=== PATIENT | female | born 1975 | race Caucasian/White ===

== ENCOUNTER 2016-05-13 08:03 | Emergency (ER) | payer OTHER ==
--- NOTE | ~2016-05-13 | CR63 ---
[facility] A Service of [facility] & [facility] RADIOLOGY TEXT RESULTS PATIENT: SOULEYMANE ALAS LOCATION: [facility] : 75 UNIT #: [id number] AGE: [address]: Silvia Christie SEX: F ORDER DR: [id number] [facility] [address] [place], [place] [address] [id number] E MR#: [id number] Acc #: [id number] NAME: SOULEYMANE ALAS. : 1975 SEX: F STUDY DATE/TIME: 05/13/2016 9:06 UNIT: [facility] ROOM: STUDY DESCRIPTION: CR Chest 2 View Attending Physician: Silvia Christie Pa-C Ordering Physician: Silvia Christie Pa-C Primary Care Physician: [facility] MEDICAL IMAGING REPORT This report is preliminary unless electronic signature is present EXAM Chest, 2 views, 05/13/2016. INDICATION 40-year-old female with a cough, headache, congestion. Left-sided chest pain for 3 days. History of asthma and hypertension. TECHNIQUE 2 views of the chest compared with 04/09/2016. FINDINGS Cardiac silhouette unremarkable. Vascularity is normal. Lungs are clear. Calcified granulomas are present. No pneumothorax. IMPRESSION Negative chest. No change. Dictated by... Nathaniel Griggs M.D. THIS IS AN ELECTRONICALLY VERIFIED REPORT Nathaniel Griggs M.D. at 05/13/2016 4:38 PM YUKI/jimenez TD: 05/13/2016 12:37 JOB #: [id number] MEDICAL IMAGING REPORT COPY
[~2016-05-13 08:03] MED LIST: ACETAMINOPHEN PO; ALBUTEROL17 GM INH; AMITRYPTYLINE PO; CELEBREX PO; CIPRO PO; IBUPROFEN PO; IBUPROFEN800 MG PO; LEVAQUIN PO; LORTAB 5/500 TA1 TA1 PO; LORTAB 7.5-5001 TAB PO; MEDROL PO; MOTRIN600 MG PO; NAPROXEN PO; NO MEDICATIONS; ORUDIS75 M1 PO; PERCOCET 5-3251 TAB PO; PHENERGAN25 MG PO; ROBITUSSIN ALL118 ML PO; ULTRAM PO; VICODIN 5/1 TAB 5/50 PO; VICODIN 5/500 T1 TAB PO; VOLTAREN50 MG PO; WALGREENS PHARMACY; ZANAFLEX PO; ZITHROMAX PO
[2016-05-13 09:01] LABS: INFLUENZA A NEG (NEG); INFLUENZA B NEG (NEG)
== END 2016-05-13 10:53 | disposition home or self-care (01) ==
LOC: CED 08:03
PROVIDERS: Physician Assistant Medical
DX: J06.9 Acute upper respiratory infection, unspecified (principal); J20.9 Acute bronchitis, unspecified; I10 Essential (primary) hypertension; F17.210 Nicotine dependence, cigarettes, uncomplicated; Z98.51 Tubal ligation status
CPT/HCPCS: 71020; 87804; 94640; 99283

== ENCOUNTER 2016-06-20 11:48 | Emergency (ER) | payer OTHER ==
--- NOTE | ~2016-06-20 | US98 ---
[facility] A Service of [facility] / [facility] RADIOLOGY TEXT RESULTS PATIENT: SOULEYMANE ALAS LOCATION: [facility] : 75 UNIT #: [id number] AGE: [address]: Anum Bowen MD SEX: F ORDER DR: [id number] [facility] [address] [place], [place] [address] [id number] E MR#: [id number] Acc #: [id number] NAME: SOULEYMANE ALAS : 1975 SEX: F STUDY DATE/TIME: 06/20/2016 13:03 UNIT: [facility] ROOM: STUDY DESCRIPTION: US Pelvic Non-OB Complete Attending Physician: Anum Bowen M.D. Ordering Physician: Anum Bowen M.D. MEDICAL IMAGING REPORT This report is preliminary unless electronic signature is present EXAM Transabdominal and transvaginal pelvic ultrasound 06/20/2016 HISTORY Right lower quadrant abdominal pain since the age of 13, increasing today. Stabbing pain. Nausea. COMPARISON No prior pelvic ultrasound of this institution for comparison. Correlation is made to CT abdomen and pelvis 05/28/2009. TECHNIQUE Transabdominal imaging was performed for generalized evaluation of the pelvic structures while transvaginal imaging was performed for more detailed evaluation of the adnexal regions. FINDINGS The uterus measures 9.4 x 4.5 x 5.5 cm. The endometrial bilayer thickness is within normal limits, 9 mm. No focal endometrial or myometrial abnormality is identified. Small cervical nabothian cysts are noted. The right ovary measures 1.5 x 1.3 x 1.2 cm without cystic or solid abnormality and demonstrates normal color and spectral Doppler flow. Left ovary measures 2.4 x 1.4 x 1.8 cm and contains a mildly complex cyst with low-level internal echoes measuring 1.1 x 0.8 x 1 cm. Color flow was documented to each ovary. No pelvic free fluid is identified. IMPRESSION 1. 1.1 cm mildly complex left ovarian lesion, thought to represent a [facility] A Service of [facility] / [facility] RADIOLOGY TEXT RESULTS PATIENT: SOULEYMANE ALAS [id number] 75 UNIT #: [id number] AGE: [address]: Anum Bowen MD SEX: F ORDER DR: mildly complex cyst. Consider ultrasound followup in 6 weeks at a different phase of the patient's menstrual cycle to ensure improvement or resolution. 2. The right ovary appears unremarkable. 3. Normal flow was documented to each ovary. 4. Normal appearance of the uterus and endometrium. Dictated by... Staci Zambrano M.D. THIS IS AN ELECTRONICALLY VERIFIED REPORT Staci Zambrano M.D. at 06/23/2016 8:37 AM ARMANDO/daija TD: 06/20/2016 17:22 JOB #: [id number] MEDICAL IMAGING REPORT Page 1 of 1 COPY
[2016-06-20 12:33] LABS: BASOPHIL# 0.1 X10e3 (0-0.3); BASOPHIL% 0.7 % (0-2.5); EOSINOPHIL# 0.1 X10e3 (0-0.7); EOSINOPHIL% 0.5 % (0.0-7.0); HEMATOCRIT 39.2 % (35.0-45.0); HEMOGLOBIN 12.9 gm/dL (12.0-16.0); LYMPHOCYTE# 1.8 X10e3 (1.0-3.5); LYMPHOCYTE% 18.3 % (17.0-45.0); MEAN CELL VOLUME 103.8 FL (83-96); MEAN CORPUSCULAR HEMOGLOBIN 34.2 PG (28-34); MEAN PLATELET VOLUME 9.3 FL (6.5-11.5); MONOCYTE# 0.5 X10e3 (0-1.0); MONOCYTE% 5.4 % (3.0-12.0); NEUTROPHIL# 7.3 X10e3 (1.5-7.1); NEUTROPHIL% 75.1 % (40-75); PLATELET COUNT 259 X10e3 (140-420); RED BLOOD COUNT 3.78 X10e (3.90-5.30); RED CELL DISTRIBUTION WIDTH 14.6 % (11.0-15.5); WHITE BLOOD COUNT 9.8 X10e3 (4.0-10.5)
[2016-06-20 12:47] LABS: DIFF IND NO
[2016-06-20 13:03] LABS: ALBUMIN SERUM 4.6 g/dL (3.5-5.0); ALKALINE PHOSPHATASE 51 U/L (32-92); ALT (SGPT) 65 U/L (10-40); AST (SGOT) 82 U/L (10-42); BILIRUBIN,TOTAL 0.4 mg/dL (0.2-2.0); BLOOD UREA NITROGEN 10 mg/dL (9-23); CALCIUM SERUM 9.2 mg/dL (8.4-10.2); CARBON DIOXIDE 20 mmol/L (22-31); CHLORIDE 102 mmol/L (100-111); CREATININE SERUM 0.4 mg/dL (0.6-1.4); GLOM FILT RATE Estimated 130.3 mL/min (>60); GLUCOSE FASTING 71 mg/dL (70-110); POTASSIUM 3.3 mmol/L (3.5-5.1); PROTEIN TOTAL SERUM 7.1 g/dL (6.0-8.3); SODIUM 139 mmol/L (135-145)
[2016-06-20 13:06] LABS: BILIRUBIN, DIRECT <0.1 mg/dL (0.0-0.2); BILIRUBIN,INDIRECT 0.3 mg/dL (0.0-0.9)
[2016-06-20 13:27] LABS: URINE SOURCE CLEAN CATCH
[2016-06-20 14:02] LABS: URINE APPEARANCE CLEAR; URINE BILIRUBIN NEG (NEG); URINE BLOOD NEG (NEG); URINE COLOR YELLOW; URINE GLUCOSE NEG (NEG); URINE KETONE TRACE (NEG); URINE LEUKOCYTE ESTERASE NEG (NEG); URINE NITRATE NEG (NEG); URINE PROTEIN NEG (NEG); URINE SPECIFIC GRAVITY 1.009 (1.003-1.035); URINE UROBILINOGEN 0.2 MG/DL (NEG)
[2016-06-20 14:19] LABS: CULTURE INDICATED? NO
== END 2016-06-20 15:34 | disposition home or self-care (01) ==
LOC: CED 11:48
PROVIDERS: Emergency Medicine
DX: R10.31 Right lower quadrant pain (principal); I10 Essential (primary) hypertension; F17.210 Nicotine dependence, cigarettes, uncomplicated; Z98.51 Tubal ligation status
CPT/HCPCS: 36415; 76856; 80048; 80076; 81003; 84703; 85025; 96361; 96374; 96375; 96376; 99284; J1170; J2405

== ENCOUNTER 2016-08-12 15:38 | Emergency (ER) | payer OTHER ==
--- NOTE | ~2016-08-12 | CR93 ---
[facility] A Service of [facility] RADIOLOGY TEXT RESULTS PATIENT: SOULEYMANE ALAS LOCATION: [facility] : 75 UNIT #: [id number] AGE: [address]: Elliott Walker MD SEX: F ORDER DR: [id number] [facility] [address] [place], [place] [address] [id number] E MR#: [id number] Acc #: [id number] NAME: SOULEYMANE ALAS. : 1975 SEX: F STUDY DATE/TIME: 08/12/2016 17:57 UNIT: [facility] ROOM: STUDY DESCRIPTION: CR Elbow Min 3 Views Lt Attending Physician: Elliott Walker M.D. Ordering Physician: Elliott Walker M.D. Primary Care Physician: [facility] MEDICAL IMAGING REPORT This report is preliminary unless electronic signature is present EXAM Left elbow, 3 views. COMPARISON None. INDICATION 40-year-old female with left elbow pain after crawling on her elbows in a crawl space yesterday. FINDINGS There is no elbow effusion. Bones are anatomically aligned. There is a tiny chronic ossicle versus small osteophyte noted at the coronoid process of the ulna. Bones are anatomically aligned. No evidence of acute fracture. There is an exostosis of the anteromedial distal aspect of the humeral shaft. IMPRESSION 1. No evidence acute fracture or dislocation of the elbow. Tiny chronic appearing bone fragment near the coronoid process of the ulna only seen on a single view, possibly representing very small osteophyte or chronic ossicle. 2. Exostosis of the distal humeral shaft, most likely representing a benign osteochondroma. If the patient has ongoing chronic pain in this location. MRI with IV contrast can be performed as an outpatient for further characterization. Dictated by... Tre Garcia M.D. [facility] A Service of [facility] RADIOLOGY TEXT RESULTS PATIENT: SOULEYMANE ALAS LOCATION: [facility] : 75 UNIT #: [id number] AGE: [address]: Elliott Walker MD SEX: F ORDER DR: THIS IS AN ELECTRONICALLY VERIFIED REPORT Tre Garcia M.D. at 08/18/2016 7:29 AM IVETT/edis TD: 08/12/2016 23:41 JOB #: [id number] MEDICAL IMAGING REPORT Page 1 of 1 COPY
--- NOTE | ~2016-08-12 | EKG ---
PATIENT: SOULEYMANE ALAS UNIT #: [id number] Ventricular Rate: 79 BPM Atrial Rate: 79 BPM P-R Interval: 168 ms QRS Duration: 96 ms Q-T Interval: 378 ms QTC Calculation(Bezet): 433 ms P [place]: 40 degrees Calculated R [place]: 47 degrees Calculated T [place]: 41 degrees Diagnosis Line: Normal sinus rhythm Diagnosis Line: Normal ECG Diagnosis Line: No previous ECGs available Diagnosis Line: Confirmed by DARRIN OKEEFE MD ([id number]) on Diagnosis Line: 08/12/2016 10:22:20 PM INTERPRETING MD: RENE
--- NOTE | ~2016-08-12 | CR72 ---
[facility] A Service of [facility] & [facility] RADIOLOGY TEXT RESULTS PATIENT: SOULEYMANE ALAS LOCATION: [facility] : 75 UNIT #: [id number] AGE: [address]: Elliott Walker MD SEX: F ORDER DR: [id number] [facility] [address] [place], [place] [address] [id number] E MR#: [id number] Acc #: [id number] NAME: SOULEYMANE ALAS. : 1975 SEX: F STUDY DATE/TIME: 08/12/2016 17:55 UNIT: [facility] ROOM: STUDY DESCRIPTION: CR Chest Single View Portable Attending Physician: Elliott Walker M.D. Ordering Physician: Elliott Walker M.D. MEDICAL IMAGING REPORT This report is preliminary unless electronic signature is present EXAM AP view of the chest COMPARISON May 13, 2016 and March 28, 2016 and December 27, 2015. HISTORY 40-year-old female with left-sided chest pain since yesterday. History of asthma. FINDINGS Cardiomediastinal silhouette is within normal limits. There is no evidence of pneumothorax or pleural effusion. No evidence of acute airspace disease. Re-demonstration of posterolateral right fifth rib fracture which is chronic in nature. IMPRESSION No acute radiographic abnormality of the chest. Dictated by... Tre Garcia M.D. THIS IS AN ELECTRONICALLY VERIFIED REPORT Tre Garcia M.D. at 08/18/2016 7:27 AM BLM/pcl TD: 08/12/2016 23:24 JOB #: [id number] MEDICAL IMAGING REPORT Page 1 of 1 COPY
[2016-08-12 17:10] LABS: BASOPHIL% 0.8 % (0-2.5); EOSINOPHIL# 0.1 X10e3 (0-0.7); EOSINOPHIL% 1.9 % (0.0-7.0); HEMATOCRIT 37.4 % (35.0-45.0); HEMOGLOBIN 12.5 gm/dL (12.0-16.0); LYMPHOCYTE# 1.8 X10e3 (1.0-3.5); LYMPHOCYTE% 33.6 % (17.0-45.0); MEAN CELL VOLUME 104.1 FL (83-96); MEAN CORPUSCULAR HEMOGLOBIN 34.8 PG (28-34); MEAN CORPUSCULAR HGB CONC 33.4 g/dL (30-36); MEAN PLATELET VOLUME 8.5 FL (6.5-11.5); MONOCYTE# 0.4 X10e3 (0-1.0); MONOCYTE% 8.6 % (3.0-12.0); NEUTROPHIL# 2.9 X10e3 (1.5-7.1); NEUTROPHIL% 55.1 % (40-75); PLATELET COUNT 236 X10e3 (140-420); RED BLOOD COUNT 3.59 X10e (3.90-5.30); RED CELL DISTRIBUTION WIDTH 13.2 % (11.0-15.5); WHITE BLOOD COUNT 5.2 X10e3 (4.0-10.5)
[2016-08-12 17:14] LABS: DIFF IND NO
[2016-08-12 17:29] LABS: ALBUMIN SERUM 4.3 g/dL (3.5-5.0); BILIRUBIN, DIRECT 0.1 mg/dL (0.0-0.2); BILIRUBIN,INDIRECT 0.3 mg/dL (0.0-0.9); BILIRUBIN,TOTAL 0.4 mg/dL (0.2-2.0); CALCIUM SERUM 9.3 mg/dL (8.4-10.2); CREATININE SERUM 0.5 mg/dL (0.6-1.4); GLOM FILT RATE Estimated 121.1 mL/min (>60); POTASSIUM 3.5 mmol/L (3.5-5.1); PROTEIN TOTAL SERUM 7.2 g/dL (6.0-8.3)
[2016-08-12 17:46] LABS: POC - CKMB 1.4 ng/mL (0.0-7.9); POC - TROPONIN <0.05 ng/mL (<=0.05)
== END 2016-08-12 19:05 | disposition home or self-care (01) ==
LOC: CED 15:38
PROVIDERS: Emergency Medicine
DX: S46.912A Strain of unspecified muscle, fascia and tendon at shoulder and upper arm level, left arm, initial encounter (principal); S46.212A Strain of muscle, fascia and tendon of other parts of biceps, left arm, initial encounter; F17.200 Nicotine dependence, unspecified, uncomplicated; J45.909 Unspecified asthma, uncomplicated; X58.XXXA Exposure to other specified factors, initial encounter; Y92.009 Unspecified place in unspecified non-institutional (private) residence as the place of occurrence of the external cause
CPT/HCPCS: 36415; 71010; 73080; 80048; 80076; 82553; 84484; 84703; 85025; 93005; 99284